=== PATIENT | male | born 1985 | race Two or more races ===

== ENCOUNTER 2019-10-15 11:02 | Emergency (ER) | payer SELFPAY ==
[2019-10-15 11:42] VITALS: BP 137/83
[2019-10-15] MEDS ORDERED: FAMOTIDINE 20 MG TABLET PO ONE (11:53)
--- NOTE | 2019-10-15 12:12 | ER Document Report ---
Entered by FATOUMATA CHANCE SCRIBE 10/15/19 1153 Acting as scribe for:ARIANA HANEY DO ED GI/ - General Chief Complaint: Abdominal Pain Stated Complaint: ABDOMINAL PAIN,MUSCLE PAIN Time Seen by Provider: 10/15/19 11:26 Information source: Patient Notes: This 34 year old male patient presents to the emergency department today with complaints of gastric pain after eating too much. Patient states he does not smoke and rarely drinks alcohol. Patient denies nausea or vomiting. Denies fever, chills, chest pain, or shortness of breath. Patient speaks little Malay with Greek as his primary language. - Related Data Allergies/Adverse Reactions: No Known Allergies Allergy (Unverified 10/15/19 12:19) Past Medical History - General Information source: Patient - Social History Smoking Status: Never Smoker Cigarette use (# per day): No Frequency of alcohol use: Rare Family History: Reviewed & Not Pertinent Patient has homicidal ideation: No GI Medical History: Reports: Hx Pancreatitis - 2009 Review of Systems - Review of Systems Constitutional: See HPI. denies: Chills, Fever EENT: No symptoms reported Cardiovascular: See HPI. denies: Chest pain Respiratory: See HPI. denies: Short of breath Gastrointestinal: See HPI, Abdominal pain. denies: Nausea, Vomiting Genitourinary: No symptoms reported Male Genitourinary: No symptoms reported Musculoskeletal: No symptoms reported Skin: No symptoms reported Hematologic/Lymphatic: No symptoms reported Neurological/Psychological: No symptoms reported -: Yes All other systems reviewed and negative Physical Exam - Vital signs Vitals: Temp Pulse Resp BP Pulse Ox 97.9 F 87 16 137/83 H 99 10/15/19 11:34 10/15/19 11:34 10/15/19 11:34 10/15/19 11:34 10/15/19 11:34 - General General appearance: Appears well, Alert - HEENT Head: Normocephalic, Atraumatic Eyes: Normal Pupils: PERRL - Respiratory Respiratory status: No respiratory distress Chest status: Nontender Breath sounds: Normal Chest palpation: Normal - Cardiovascular Rhythm: Regular Heart sounds: Normal auscultation Murmur: No - Abdominal Inspection: Normal Distension: No distension Bowel sounds: Normal Tenderness: Other - Mild tenderness with palpation to the epigastric region. - Extremities General upper extremity: Normal inspection. No: Edema General lower extremity: Normal inspection. No: Edema - Neurological Neuro grossly intact: Yes Cognition: Normal Orientation: AAOx4 - Psychological Associated symptoms: Normal affect, Normal mood - Skin Skin Temperature: Warm Skin Moisture: Dry Skin Color: Normal Course - Re-evaluation Re-evalutation: 10/15/19 12:04 MDM Delightful 34 year old male that I conversed with by Fabiola. Has epigastric pain after he "eats too much" for 3 days. Soemwhat better after acetaminophen. He has consumed no etoh in 2 weeks. Feel this is most likely to represent gastritis vs dyspepsia and pancratitis and cholycystitis while considered are less likely. Given return here instructions by me and expressed understadning. 10/15/19 12:12 - Vital Signs Vital signs: Temp Pulse Resp BP Pulse Ox 97.9 F 87 16 137/83 H 99 10/15/19 11:34 10/15/19 11:34 10/15/19 11:34 10/15/19 11:34 10/15/19 11:34 Discharge - Discharge Clinical Impression: Epigastric abdominal pain Condition: Good Disposition: HOME, SELF-CARE Instructions: Abdominal Pain ([facility]), Dyspepsia ([facility]), Family Physicians / Practices Additional Instructions: Avoid alcohol. Take the medicine as directed. Please return here for recurren ce of pain, vomiting or other problems or any other concerns. Take the medicine perscribed and then take either pepcid (20mg daily) which may be purchased over the counter or see a primary doctor and get the medicine perscribed refilled. Prescriptions: Sucralfate [Carafate 1 gm Tablet] 1 gm PO ACHS 30 Days #120 tablet I personally performed the services described in the documentation, reviewed and edited the documentation which was dictated to the scribe in my presence, and it accurately records my words and actions.
== END 2019-10-15 12:32 | disposition home or self-care (01) ==
LOC: ER 11:02
DX: R10.13 Epigastric pain (principal); R10.816 Epigastric abdominal tenderness; Z87.19 Personal history of other diseases of the digestive system
CPT/HCPCS: 99283